=== PATIENT | female | born 1985 | race African-American/Black ===

== ENCOUNTER 2017-12-01 10:10 | Emergency (ER) | payer BC, OTHER ==
[~2017-12-01] VITALS: Ht 157.5 cm; Wt 62.6 kg
[2017-12-01 11:00] LABS: ABSOLUTE NEUTROPHILS 4.9 thou/uL (1.4-8.2); BASOPHILS 0.3 % (0.0-2.0); EOSINOPHILS 0.1 % (0.0-3.0); HEMATOCRIT 38.8 % (37.0-47.0); HEMOGLOBIN 13.2 gm/dL (12.0-15.0); LYMPHOCYTES 29.8 % (24.0-44.0); MCV 79.4 fL (80.0-100.0); MONOCYTES 4.3 % (1.0-8.0); PLATELET COUNT 274 thou/uL (150-400); POLYS 65.5 % (36.0-66.0); RBC 4.89 mil/uL (4.20-5.00); RDW 15.5 % (10.5-14.5); WBC 7.5 thou/uL (4.0-11.0)
[2017-12-01 11:12] LABS: CALCIUM 8.8 mg/dL (8.5-10.1); CREATININE 0.9 mg/dL (0.6-1.0); POTASSIUM 3.5 mmol/L (3.5-5.1)
[2017-12-01] MEDS ORDERED: PROVENTIL HFA6.7 G1 INH (11:34)
[2017-12-01] MEDS ORDERED: TESSALON PERLE100 MG PO (11:34)
[2017-12-01] MEDS ORDERED: PREDNISONE 20 M20 MG PO (11:34)
== END 2017-12-01 12:30 | disposition home or self-care (01) ==
LOC: ER 10:10
PROVIDERS: Physician Assistant
DX: J06.9 Acute upper respiratory infection, unspecified (principal)

== ENCOUNTER 2018-04-24 19:09 | Emergency (ER) | payer BC, OTHER ==
[~2018-04-24] VITALS: Ht 162.6 cm; Wt 63.5 kg
[~2018-04-24 19:09] MED LIST: PREDNISONE 20 M20 MG PO; PROVENTIL HFA6.7 G1 INH; TESSALON PERLE100 MG PO
[2018-04-24 19:31] LABS: URINE BLOOD 3+ (Negative); URINE CLARITY CLEAR; URINE COLOR YELLOW; URINE GLUCOSE-RANDOM* NEGATIVE (Negative); URINE KETONES TRACE (Negative); URINE LEUKOCYTES-REFLEX NEGATIVE (Negative); URINE NITRITE-REFLEX NEGATIVE (Negative); URINE PROTEIN (DIPSTICK) 1+ (Negative); URINE SPECIFIC GRAVITY >= 1.030 (1.005-1.035); URINE UROBILINOGEN 0.2 E.U./dl (0.2-1.0)
[2018-04-24 19:33] LABS: ICTOTEST (BILI CONFIRMATORY) Negative (Negative); URINE BILIRUBIN NEGATIVE (Negative)
[2018-04-24 19:44] LABS: SQUAMOUS 4-10 Moderate /LPF (0-3)
[2018-04-24 19:45] LABS: AMORPHOUS URATES Many /LPF (None Seen); BACTERIA-REFLEX None Seen /HPF (None Seen); CASTS None Seen /LPF (None Seen); MUCUS 0-3 Light strn/LPF (None Seen); URINE WBC-REFLEX 0-5 Rare /HPF (0-5)
[2018-04-24 19:49] LABS: ABSOLUTE NEUTROPHILS 9.2 thou/uL (1.4-8.2); BASOPHILS 0.4 % (0.0-2.0); EOSINOPHILS 0.1 % (0.0-3.0); HEMATOCRIT 38.3 % (37.0-47.0); HEMOGLOBIN 12.7 gm/dL (12.0-15.0); LYMPHOCYTES 11.7 % (24.0-44.0); MCH 26.3 pg (26.0-34.0); MCHC 33.2 g/dL (28.0-37.0); MCV 79.2 fL (80.0-100.0); MONOCYTES 4.7 % (1.0-8.0); PLATELET COUNT 313 thou/uL (150-400); POLYS 83.1 % (36.0-66.0); RBC 4.83 mil/uL (4.20-5.00); RDW 16.3 % (10.5-14.5); WBC 11.1 thou/uL (4.0-11.0)
[2018-04-24 19:57] LABS: CALCIUM 9.3 mg/dL (8.5-10.1); POTASSIUM 3.1 mmol/L (3.5-5.1)
[2018-04-24 20:06] LABS: ALBUMIN 4.4 g/dL (3.4-5.0); TOTAL BILIRUBIN 0.7 mg/dL (<0.1-1.0)
[2018-04-24] MEDS ORDERED: PHENERGAN 25 MG25 M1 PO (21:15)
[2018-04-24 21:39] VITALS: BP 101/54
== END 2018-04-24 21:40 | disposition home or self-care (01) ==
LOC: ER 19:09
PROVIDERS: Physician Assistant
DX: R11.2 Nausea with vomiting, unspecified (principal); R10.9 Unspecified abdominal pain; R05 Cough; R19.7 Diarrhea, unspecified

== ENCOUNTER 2019-04-02 08:46 | Emergency (ER) | payer OTHER ==
[~2019-04-02] VITALS: Ht 165.1 cm; Wt 68.0 kg
[~2019-04-02 08:46] MED LIST changes: +PHENERGAN 25 MG25 M1 PO
[2019-04-02 09:32] LABS: ABSOLUTE NEUTROPHILS 3.1 thou/uL (1.4-8.2); BASOPHILS 0.8 % (0.0-2.0); EOSINOPHILS 0.6 % (0.0-3.0); HEMATOCRIT 42.7 % (37.0-47.0); HEMOGLOBIN 13.8 gm/dL (12.0-15.0); LYMPHOCYTES 34.8 % (24.0-44.0); MCH 26.8 pg (26.0-34.0); MCHC 32.3 g/dL (28.0-37.0); MCV 82.8 fL (80.0-100.0); MONOCYTES 6.2 % (1.0-8.0); PLATELET COUNT 324 thou/uL (150-400); POLYS 57.6 % (36.0-66.0); RBC 5.16 mil/uL (4.20-5.00); WBC 5.4 thou/uL (4.0-11.0)
[2019-04-02 09:34] LABS: ANION GAP 10 mmol/L (7-16); BUN 8 mg/dL (7-18); CALCIUM 9.2 mg/dL (8.5-10.1); CHLORIDE 103 mmol/L (98-107); CO2 24 mmol/L (21-32); CREATININE 0.8 mg/dL (0.6-1.0); GLUCOSE 93 mg/dL (74-106); POTASSIUM 3.9 mmol/L (3.5-5.1); SODIUM 137 mmol/L (136-145)
[2019-04-02 09:43] LABS: TROPONIN-I <0.06 ng/mL (<0.06)
[2019-04-02] MEDS ORDERED: MOBIC15 MG PO (10:26)
[2019-04-02 10:38] VITALS: BP 122/78
--- NOTE | 2019-04-03 08:12 | EKG ---
[address] [address] [place] [address] ELECTROCARDIOGRAM REPORT Name: JCARLOS CARRENO Room #: [facility] [id number] ������������������ Admission: 04/02/19 ������������������ Attend Phys: Discharge: 04/02/19 ������������������ Date of : 81 Report #: [id number] ����������������������������������������������������������������� [id number] THIS REPORT FOR: //name// [facility] ED Test Date: 2019-04-02 Test Time: 08:51:13 Pat Name: JCARLOS CARRENO Department: Room: Gender: F [employer] Technician: CHULA : 1985 Requested By: Estefanía Garcia Order Number: [id number] MD: Valeriy Huston Measurements Intervals [place] Rate: 81 P: 51 FL: 173 QRS: 54 QRSD: 73 T: 33 QT: 365 QTc: 424 Interpretive Statements Sinus rhythm No significant abnormality Baseline wander in lead(s) V3 No previous ECG available for comparison Electronically Signed On 04-03-2019 8:12:09 CDT by Valeriy Huston [email or web address] ��������������������������������������������� <ELECTRONICALLY SIGNED> ���������������������������������������� By: Valeriy Huston MD, [facility] ��������������������������������������������� 04/03/19 0812 [id number] Valeriy Huston MD, FACC /EPI
== END 2019-04-02 10:17 | disposition home or self-care (01) ==
LOC: ER 08:46
PROVIDERS: Emergency Medicine
DX: R07.89 Other chest pain (principal); K50.90 Crohn's disease, unspecified, without complications